=== PATIENT | female | born 1965 | race Asian ===

== ENCOUNTER 2018-11-08 15:42 | Emergency (ER) | payer BC ==
[~2018-11-08] VITALS: Ht 162.6 cm; Wt 72.6 kg
[2018-11-08 15:55] VITALS: BP_SYST 129
[2018-11-08] MEDS ORDERED: chlorproMAZINE HCL 50 MG/ 2 ML AMP IV ONE (16:30)
[2018-11-08] MEDS ORDERED: DIPHENHYDRAMINE INJ 50 MG/ML VIAL IVP ONE (16:30)
[2018-11-08] MEDS ORDERED: NACL 0.9% 1,000 ML IV ONE (16:30)
[2018-11-08 17:52] VITALS: BP_SYST 132
== END 2018-11-08 17:52 | disposition home or self-care (01) ==
LOC: SED 15:42
DX: G43.909 Migraine, unspecified, not intractable, without status migrainosus (principal); J30.9 Allergic rhinitis, unspecified; R03.0 Elevated blood-pressure reading, without diagnosis of hypertension
CPT/HCPCS: 81025; 96361; 96374; 96375; 99283; J1200; J3230; J7030